=== PATIENT | male | born 1950 | race Caucasian/White ===

== ENCOUNTER 2024-04-13 08:47 | Outpatient (RCR) | payer MEDICARE, SELFPAY ==
--- NOTE | 2024-04-06 14:48 | CTCFLWUP_ITS ---
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 Higinio Quiñonez 01/14/2023. Stage IVb [id number] with extensive necrosis involving parotid gland extended subcutaneous 12/13 lymph n odes positive. Patient received concurrent chemotherapy ([place] Dr Mae) with radiation therapy, total dose 6000 cGy via VMAT completed 04/24/2023 Posttreatment PET 10/12/2023 revealed hypermetabolic right parotid mass smaller from prior exam but pe rsistent. Now a deep inferior right parotid lesion not seen previously but likely continue with the larger right parotid lesion. Tiny area of hypermetabolic soft tissue the right supra clav region pos terior to the right common carotid artery likely new lymph node met and focal hypermetabolic the left glossal tonsillar sulcus new from prior exam. Patient had biopsy of the recurrence 11/10/2023. Slightly above the prior treated field. Patient has been getting chemotherapy in [place]. Still another recurrence superior to the prior site on 03/29/2024. New PET scan performed not immediately available to me. As I see patient today there is gross tumor in the area superior to the prior field. I will attempt to speak with Dr. Velasco medical oncologist in [place] who is giving him every 3 weeks chemo about how this will be managed along with the radiation. Considering the area superior to the previously treated field I believe another 5 or 6000 cGy can be delivered at the site. Cc: Higinio Eduardo MD Electronically signed by: Jeremiah Jones M.D. 04/06/2024 2:46 PM
--- NOTE | 2024-04-06 14:50 | CTCTXPLN_ITS ---
[facility] [address] [place], [place] [address] Physician Clinical Treatment Planning Note Date of Service: 04/06/2024 Name: STEPHAN LEONARD D.O.B.: 1950 The patient has agreed to proceed with Radiation therapy. Tests and supporting medical records were interpreted to assist in defining the tumor location and extent of disease. Further imaging will be necessary to contour and delineate the volume to which the XRT will be provided. A. Treatment Intent: Curative B. Modality: 6 MV C. Requested Technique: VMAT D. Treatment Site: Right rastafarian E. Critical structures to be contoured on plan: F. In order to accomplish this plan, I am ordering/Prescribing the followin. Simulations (s) will be performed to accomplish a reproducible treatment position, to determine op timal treatment portals/beam arrangements, to design beam modifying devices and verify treatment port als on patient prior to the commencement of Radiation Therapy. Right rastafarian 2. Devices; for immobilization and beam shaping: Aquaplast 3. CT Guidance for placement of XRT chavez Scan area: 4. Portal images Frequency: 5. Invivo transit dose measurement once per week on all VMAT patients. 6. Special Physics Consult Requested for: 7. Other requests: Special procedures someone getting chemo and radiation G. Dose Objectives: Curative Electronically signed by: Jeremiah Jones M.D. 04/06/2024 2:47 PM
--- NOTE | 2024-04-06 14:52 | CTCTXPLNST_ITS ---
Radiation Oncology Treatment Planning Sheet Name: STEPHAN LEONARD MR#: [id number] : 1950 Dx: C07 Malignant neoplasm of parotid gland Date of Service: 04/06/2024 Account #: ?? Pt Treatment Intent: curative palliative other: Stage: Procedure CPT # Ordered Spec. Procedure 58932 1 Rojas Complex (set-up) 82465 Aquaplast /need to doyle sabianism site 1 Rojas Simple 08446 IMRT Plan 27807 1 MLC Devices VMAT 13029 3 Rojas 3 D 80307 TRTMT dev Complex 69244 Aqua Plast 1 TRTMT dev simple 27666 Basic Manuel 00007 6 Special Dosimetry 97962 Spec Physics 78260 Physics consult 1 Port Films 85760 SRS Cranial/1FX 31911 SBR 5 FX or Less /ex: 5 = 5 fx 24888 IMRT Simple 38082 IMRT Complex 36130 6000 30 IGRT 25771 25 Rad del com 6-10 92088 Rad del com 11 25388 Cont Med Physics 17028 6 Treatment Planning 23767 1 Rad del com 20 mev 25646 Rad del inter 6 98799 Rad del inter 02-01 32419 Rad del simple 6-10 79539 Rad del simple 02-01 07403 Special Port Plan 51207 TRTMT dev inter 50722 Isodose Complex 71378 Isodose simple 35286 Resp Motion Mgmt Simulation 19232 Placement of Fiducial Markers 05289 Electronically Signed By: Jeremiah Jones MD, DABR 04/06/2024 2:49 PM
== END 2024-04-15 23:59 | disposition home or self-care (01) ==
LOC: SCTC 08:47
PROVIDERS: PCP Family Medicine; Referring Provider Family Medicine; Visit Provider Radiology Therapeutic Radiology
DX: C07 Malignant neoplasm of parotid gland (principal); Z90.89 Acquired absence of other organs
CPT/HCPCS: 77014; 77290; 77334; 99213; G0463

== ENCOUNTER → 2024-04-29 | Outpatient (CLI) | payer MEDICARE, SELFPAY ==
[2024-04-29 10:41] LABS: Collection Type, Urine Clean Catch; Squamous Epithelial Cell,Urine 0 /hpf (0-5)
[2024-04-29 11:17] LABS: Bilirubin,Urine Negative (Negative); Blood,Urine Negative (Negative); Clarity,Urine Clear (Clear/Hazy); Color,Urine Lt-Yellow (Lt Yel-Yel); Glucose, Urine 1+ (Negative); Ketones,Urine Negative (Negative); Leukocyte Esterase,Urine Negative (Negative); Nitrite,Urine Negative (Negative); PH,Urine 5.5 (5.0-7.0); Protein,Urine Negative (Neg - Trace); RBC,Urine 2 /hpf (0-3); Specific Gravity,Urine 1.024 (1.001-1.035); Urobilinogen,Urine Negative mg/dL (0.0-1.0); WBC,Urine 1 /hpf (0-5)
[2024-04-29 11:32] LABS: Creatinine MALB Rnd Ur 110 mg/dL (30-125); Microalbumin Creat Ratio 13 mg/gCrea (<30); Microalbumin, Random Urine 14 mg/L (0-300)
[2024-04-29 11:32] LABS: Glucose Estimated Average 163 mg/dL (80-131); Hemoglobin A1C 7.3 % Hgb (4.8-6.0)
[2024-04-29 11:40] LABS: Alanine Aminotransferase 29 U/L (10-49); Albumin, Serum 4.4 gm/dL (3.4-4.8); Albumin/Globulin Ratio 2.3 (1.2-2.2); Alkaline Phosphatase 152 U/L (46-116); Anion Gap 8 (7-16); Aspartate Amino Transferase 23 U/L (0-34); BUN/Creatinine Ratio 17 Ratio (12-20); Bilirubin,Total 0.4 mg/dL (0.3-1.2); Blood Urea Nitrogen 20 mg/dL (9-23); Calcium 10.1 mg/dL (8.3-10.6); Calcium (Corrected) 10.1 mg/dL (8.5-10.1); Carbon Dioxide 25.1 mMol/L (20.0-31.0); Chloride 110 mMol/L (98-107); Cholesterol 154 mg/dL (132-200); Creatinine (Component) 1.2 mg/dL (0.6-1.3); Globulin 1.9 gm/dL (2.3-3.5); Glucose 190 mg/dL (74-106); HDL Cholesterol 31 mg/dL (40-60); LDL Cholesterol,Calculated 58 mg/dL (0-130); Osmolality,Calculated 292 (275-295); Potassium 4.5 mMol/L (3.4-5.1); Sodium 143 mMol/L (136-145); Thyroid Stimulating Hormone 0.76 uIU/mL (0.55-4.78); Total Protein 6.3 gm/dL (5.7-8.2); Triglycerides 324 mg/dL (30-150); Uric Acid 5.3 mg/dL (3.7-9.2); eGFR > 60 See Note
== END | disposition home or self-care (01) ==
LOC: COPL 09:55
PROVIDERS: PCP Family Medicine; Referring Provider Family Medicine; Visit Provider Family Medicine
DX: Z00.00 Encounter for general adult medical examination without abnormal findings (principal); E11.65 Type 2 diabetes mellitus with hyperglycemia; E78.2 Mixed hyperlipidemia; I10 Essential (primary) hypertension; E79.0 Hyperuricemia without signs of inflammatory arthritis and tophaceous disease
CPT/HCPCS: 36415; 80053; 80061; 81001; 82043; 82570; 83036; 84443; 84550

== ENCOUNTER 2024-05-13 08:31 | Outpatient (RCR) | payer MEDICARE, SELFPAY | END 2024-05-13 23:59 | disposition home or self-care (01) | LOC: SCTC 08:31 | PROVIDERS: PCP Family Medicine; Referring Provider Radiology Therapeutic Radiology; Visit Provider Radiology Therapeutic Radiology | DX: Z51.0 Encounter for antineoplastic radiation therapy (principal); C07 Malignant neoplasm of parotid gland; Z90.89 Acquired absence of other organs; Z92.21 Personal history of antineoplastic chemotherapy | CPT/HCPCS: 77300; 77301; 77336; 77338; 77385 ==

== ENCOUNTER 2024-06-06 08:23 | Outpatient (RCR) | payer MEDICARE, SELFPAY ==
--- NOTE | 2024-05-16 09:59 | CTCTRTNOTE_ITS ---
[facility] [address] [place], [place] [address] Weekly Management Date: 05/16/2024 ?? Name: STEPHAN Anderson.: 1950 A. Patient is currently at 3000 cGy. B. Patient is tolerating treatment well. Moderate erythema C. Resume radiation therapy. Electronically signed by: Jeremiah Jones M.D. 05/16/2024 9:57 AM
== END 2024-06-13 23:59 | disposition home or self-care (01) ==
LOC: SCTC 08:23
PROVIDERS: PCP Family Medicine; Referring Provider Family Medicine; Visit Provider Radiology Therapeutic Radiology
DX: Z51.0 Encounter for antineoplastic radiation therapy (principal); C07 Malignant neoplasm of parotid gland; L59.8 Other specified disorders of the skin and subcutaneous tissue related to radiation; Y84.2 Radiological procedure and radiotherapy as the cause of abnormal reaction of the patient, or of later complication, without mention of misadventure at the time of the procedure; H91.91 Unspecified hearing loss, right ear
CPT/HCPCS: 77336; 77385; 99424; 99425

== ENCOUNTER 2024-06-21 08:43 | Outpatient (RCR) | payer MEDICARE, SELFPAY ==
--- NOTE | 2024-06-21 09:58 | CTCTSUMM_ITS ---
[facility] [address] [place], [place] [address] Treatment Summary Date: 06/21/2024 MR#: [id number] Name: STEPHAN LEONARD : 1950 Dx: C07 Referring Physician: Higinio Quiñonez MD (A) Diagnosis: [ICD10] C07 Malignant neoplasm of parotid gland (B) Aim of Treatment: ?? (C) Concomitant Chemotherapy: Yes (D) Radiation Dates: Prior radiation therapy to the right parotid region 2023. For recurrence in the right cranial buddhism soft tissue l region was given additional treatment as follows. Treatment Prescription R buddhism VMAT 6 MV PHOT 6,000 cGy 30 200 cGy Approved (E) All chavez were treated using customized MLC Blocks (F) Finding at Discharge: Patient was seen for first follow-up on 06/21/2024 patient appears to have tolerated well with soft tissue thickening in the area treated with mild desquamation of skin. (G) Discharge Instructions and F/U Appt was given: The patient was also advised to continue follow-up with Dr. uQiñonez and primary care physician: Cc: MD Ulises Perez MD Electronically signed by: Jeremiah Jones MD, DAVIDA 06/21/2024 9:56 AM
== END 2024-07-13 23:59 | disposition home or self-care (01) ==
LOC: SCTC 08:43
PROVIDERS: PCP Family Medicine; Referring Provider Family Medicine; Visit Provider Radiology Therapeutic Radiology
DX: C07 Malignant neoplasm of parotid gland (principal); Z92.3 Personal history of irradiation
CPT/HCPCS: 99212; G0463

== ENCOUNTER → 2024-07-08 | Outpatient (CLI) | payer MEDICARE, MEDICAID, SELFPAY ==
[2024-07-08 08:43] LABS: Glucose Estimated Average 163 mg/dL (80-131); Hemoglobin A1C 7.3 % Hgb (4.8-6.0)
[2024-07-08 08:57] LABS: Alanine Aminotransferase 21 U/L (10-49); Albumin, Serum 4.4 gm/dL (3.4-4.8); Albumin/Globulin Ratio 2.2 (1.2-2.2); Alkaline Phosphatase 117 U/L (46-116); Anion Gap 6 (7-16); Aspartate Amino Transferase 23 U/L (0-34); BUN/Creatinine Ratio 15 Ratio (12-20); Bilirubin,Total 0.5 mg/dL (0.3-1.2); Blood Urea Nitrogen 20 mg/dL (9-23); Calcium 9.8 mg/dL (8.3-10.6); Calcium (Corrected) 9.8 mg/dL (8.5-10.1); Carbon Dioxide 25.2 mMol/L (20.0-31.0); Cardiac Risk Estimate 4.5 RATIO (4.0-6.7); Chloride 110 mMol/L (98-107); Cholesterol 158 mg/dL (132-200); Creatinine (Component) 1.3 mg/dL (0.6-1.3); Glucose 132 mg/dL (74-106); HDL Cholesterol 35 mg/dL (40-60); LDL Cholesterol,Calculated 63 mg/dL (0-130); Osmolality,Calculated 285 (275-295); Potassium 4.6 mMol/L (3.4-5.1); Sodium 141 mMol/L (136-145); Total Protein 6.4 gm/dL (5.7-8.2); Triglycerides 300 mg/dL (30-150); eGFR 59 See Note
== END | disposition home or self-care (01) ==
LOC: COPL 07:47
PROVIDERS: PCP Family Medicine; Referring Provider Family Medicine; Visit Provider Family Medicine
DX: E11.65 Type 2 diabetes mellitus with hyperglycemia (principal); E78.2 Mixed hyperlipidemia
CPT/HCPCS: 36415; 80053; 80061; 83036

== ENCOUNTER 2024-09-20 08:46 | Outpatient (RCR) | payer MEDICARE, MEDICAID, SELFPAY ==
--- NOTE | 2024-09-20 12:57 | CTCFLWUP_ITS ---
[facility] [address] [place], [place] [address] FOLLOW-UP NOTE Date: 09/20/2024 MR#: [id number] Name: STEPHAN LEONARD : 1950 Dx: C07 Malignant neoplasm of parotid gland Identification. Patient history of right parotid gland malignancy mucoepidermoid carcinoma status post right radical parotidectomy Dr. Per Quiñonez [place] January 14, 2023 Stage IVb [id number] with extensive necrosis involving parotid gland extending subcutaneous 9 of 30 lymph nodes positive. Patient received concurrent chemotherapy [place] (Dr Mae) with 6000 cGy VMAT completed 04/24/2023. Posttreatment PET revealed hypermetabolic right parotid mass smaller from prior exam but persistent. Recurrence superior to prior site noted 03/29/2024 confirmed by biopsy. The new site superior to the previous field was treated via VMAT 6000 cGy completed 06/06/2024. Patient taking hydrocodone 10 every 6 as needed for pain. Patient states that Dr. Velasco in [place] was treating his cancer with hormone blockers PET scan performed a month ago reportedly showed good response to prior treatment and no definite sign of active cancer. His exam and his right ear however there is dime sized preauricular area which appears firm, and irregular area in the anterior portion of the helix. Picture taken. Assessment. #1 History of stage IVb [id number] right parotid malignancy mucoepidermoid type surgery right radical parotidectomy neck dissection 01/14/2023. #2. Postop chemoradiation 6000 cGy completed 04/24/2023. #3. recurrence right episcopalian above prior treatment 6000 cGy completed 06/06/2024. #4. 6000 cGy right episcopalian area completed 06/06/2024. #5. Possible recurrence in the right preauricular and anterior helix area. #6. Took a picture of this and I will see him again in 1 month. Electronically signed by: Jeremiah Jones M.D. 09/20/2024 12:55 PM
== END 2024-10-13 23:59 | disposition home or self-care (01) ==
LOC: SCTC 08:46
PROVIDERS: PCP Family Medicine; Referring Provider Family Medicine; Visit Provider Radiology Therapeutic Radiology
DX: C07 Malignant neoplasm of parotid gland (principal); Z92.3 Personal history of irradiation
CPT/HCPCS: 99213; G0463

== ENCOUNTER 2024-10-20 07:50 | Outpatient (RCR) | payer MEDICARE, MEDICAID, SELFPAY ==
--- NOTE | 2024-10-20 08:31 | CTCFLWUP_ITS ---
[facility] [address] [place], [place] [address] FOLLOW-UP NOTE Date: 10/20/2024 MR#: [id number] Name: STEPHAN LEONARD : 1950 Dx: C07 Malignant neoplasm of parotid gland Identification. History of right parotid gland malignancy mucoepidermoid carcinoma status post right radical parotidectomy Dr. Per Quiñonez present on January 14, 2023 Stage IVb [id number] with extensive necrosis involving parotid gland extending subcutaneous 9 of 30 lymph nodes positive. Concurrent chemotherapy in [place] (Dr Mae) with 6000 cGy VMAT completed 04/24/2023. Posttreatment PET revealed hypermetabolic right parotid mass smaller from prior exam but persistent. Recurrence superior to prior site noted 01/17/2025 confirmed by biopsy. The new site superior to previous field was treated VMAT 6000 cGy completed 06/06/2024. PET scan performed posttreatment reportedly showed good response. When seen for checkup on 09/20/2021 there appeared to be a dime sized preauricular area along with. Irregular area in the antihelix. I saw patient today and compared with the picture taken a month ago. This appears to be larger and more tender so clinically recurring clearly. A#1. History of stage IVb pT3b N3b right parotid malignancy mucoepidermoid type right radical parotidectomy and neck dissection 01/14/2023 A#2 postop chemoradiation 6000 cGy completed 04/24/2023.. A#3. Recurrence right church above prior treatment 6000 cGy completed 06/06/2024. A#4. Likely recurrence in the right preauricular and anterior helix area patient is getting chemo again with Dr. Krista Montgomery. A#5. Renewed pain meds and will see him in 3 months. Patient with appointment with Dr. Quiñonez surgeon later this month.. Electronically signed by: Jeremiah Jones M.D. 10/20/2024 8:29 AM
== END 2024-11-13 23:59 | disposition home or self-care (01) ==
LOC: SCTC 07:50
PROVIDERS: PCP Family Medicine; Referring Provider Family Medicine; Visit Provider Radiology Therapeutic Radiology
DX: C07 Malignant neoplasm of parotid gland (principal); Z92.21 Personal history of antineoplastic chemotherapy; Z92.3 Personal history of irradiation
CPT/HCPCS: 99213; G0463

== ENCOUNTER → 2024-11-30 | Outpatient (CLI) | payer MEDICARE, MEDICAID, SELFPAY ==
[2024-11-30 08:30] LABS: Basophils # (Auto) 0.0 Thou/mm3 (0.0-0.2); Basophils % (Auto) 1 % (0-2.5); Eosinophils # (Auto) 0.1 Thou/mm3 (0.0-0.5); Eosinophils % (Auto) 1 % (0-10); Hematocrit 31.8 % (41.0-53.0); Hemoglobin 10.2 g/dL (13.5-16.0); Immature Granulocytes Auto 0.11 Thou/mm3 (0.00-0.00); Lymphocytes # (Auto) 0.8 Thou/mm3 (1.0-4.8); Lymphocytes % (Auto) 10 % (10-50); Mean Corpuscular HGB Conc 32.1 g/dl (31.0-37.0); Mean Corpuscular Hemoglobin 29.6 pg (25.0-35.0); Mean Corpuscular Volume 92 fL (80-100); Monocytes # (Auto) 0.7 Thou/mm3 (0.0-0.8); Monocytes % (Auto) 9 % (0-12); Neutrophils # (Auto) 6.2 Thou/mm3 (1.8-7.7); Neutrophils % (Auto) 78 % (37-80); Nucleated Red Blood Cell # 0.02 Thou/mm3 (0.00-0.00); Nucleated Red Blood Cell % 0 /100 WBC (0); Platelet Count 144 Thou/mm3 (140-440); RDW Standard Deviation 50.4 fL (35.1-43.9); Red Blood Count 3.45 Miln/mm3 (4.50-5.90); White Blood Count 7.9 Thou/mm3 (3.8-10.6)
[2024-11-30 08:35] LABS: Glucose Estimated Average 128 mg/dL (80-131); Hemoglobin A1C 6.1 % Hgb (4.8-6.0)
[2024-11-30 08:38] LABS: Alanine Aminotransferase 16 U/L (10-49); Albumin, Serum 4.4 gm/dL (3.4-4.8); Albumin/Globulin Ratio 2.6 (1.2-2.2); Alkaline Phosphatase 110 U/L (46-116); Anion Gap 7 (7-16); Aspartate Amino Transferase 22 U/L (0-34); BUN/Creatinine Ratio 11 Ratio (12-20); Bilirubin,Total 0.5 mg/dL (0.3-1.2); Blood Urea Nitrogen 14 mg/dL (9-23); Calcium 10.1 mg/dL (8.3-10.6); Calcium (Corrected) 10.1 mg/dL (8.5-10.1); Carbon Dioxide 27.6 mMol/L (20.0-31.0); Cardiac Risk Estimate 3.7 RATIO (4.0-6.7); Chloride 107 mMol/L (98-107); Cholesterol 123 mg/dL (132-200); Creatinine (Component) 1.3 mg/dL (0.6-1.3); Globulin 1.7 gm/dL (2.3-3.5); Glucose 122 mg/dL (74-106); HDL Cholesterol 33 mg/dL (40-60); LDL Cholesterol,Calculated 41 mg/dL (0-130); Osmolality,Calculated 284 (275-295); Potassium 4.3 mMol/L (3.4-5.1); Sodium 142 mMol/L (136-145); Total Protein 6.1 gm/dL (5.7-8.2); Triglycerides 244 mg/dL (30-150); Uric Acid 5.6 mg/dL (3.7-9.2); eGFR 58 See Note
== END | disposition home or self-care (01) ==
LOC: COPL 07:35
PROVIDERS: PCP Family Medicine; Referring Provider Family Medicine; Visit Provider Internal Medicine Hematology & Oncology
DX: D64.9 Anemia, unspecified (principal); E11.65 Type 2 diabetes mellitus with hyperglycemia; E78.2 Mixed hyperlipidemia; I10 Essential (primary) hypertension; E79.0 Hyperuricemia without signs of inflammatory arthritis and tophaceous disease
CPT/HCPCS: 36415; 80053; 80061; 83036; 84550; 85025

== ENCOUNTER 2025-01-18 08:20 | Outpatient (RCR) | payer MEDICARE, MEDICAID, SELFPAY ==
--- NOTE | 2025-01-18 09:30 | CTCFLWUP_ITS ---
[facility] [address] [place], [place] [address] FOLLOW-UP NOTE Date: 01/18/2025 MR#: [id number] Name: STEPHAN LEONARD : 1950 Dx: C07 Malignant neoplasm of parotid gland Identification. History of right parotid gland malignancy mucoepidermoid carcinoma status post right radical parotidectomy Dr. Per Quiñonez January 14, 2023. Stage IVb T3b pN3b with extensive necrosis involving parotid gland extending subcutaneous 12/13 lymph nodes positive. Concurrent chemo with Dr. Carmelita Tenorio 6000 cGy VMAT completed 04/24/2023. Recurrence paired to prior site noted 01/17/2025 confirmed by biopsy. New site superior to previous field was treated with VMAT 6000 cGy completed 06/06/2024. Still another recurrence right preauricular and anterior helix area resume chemo in [place]. Recently seen by [facility] and had 12-hour surgery about 3 weeks ago. Graft was taken from left thigh area. The area of observed previously healing well and patient has follow-up with [facility] in a few days. Yet to get records from [facility] which we have requested for. I have scheduled patient for 3-month follow-up but will be seeing him sooner if we need to get involved in any way. Patient is doing well in terms of pain management since the surgery but I will renew his pain meds as needed. Electronically signed by: Jeremiah Jones M.D. 01/18/2025 9:28 AM
== END 2025-02-12 23:59 | disposition home or self-care (01) ==
LOC: SCTC 08:20
PROVIDERS: PCP Family Medicine; Referring Provider Family Medicine; Visit Provider Radiology Therapeutic Radiology
DX: C07 Malignant neoplasm of parotid gland (principal); Z90.89 Acquired absence of other organs; Z92.3 Personal history of irradiation
CPT/HCPCS: 99213; G0463

== ENCOUNTER → 2025-01-23 | Outpatient (CLI) | payer MEDICARE, MEDICAID, SELFPAY ==
[2025-01-23 12:34] LABS: Alanine Aminotransferase 12 U/L (10-49); Albumin, Serum 4.3 gm/dL (3.4-4.8); Albumin/Globulin Ratio 2.7 (1.2-2.2); Alkaline Phosphatase 142 U/L (46-116); Anion Gap 7 (7-16); Aspartate Amino Transferase 16 U/L (0-34); BUN/Creatinine Ratio 13 Ratio (12-20); Bilirubin,Total 0.3 mg/dL (0.3-1.2); Blood Urea Nitrogen 14 mg/dL (9-23); Calcium 9.4 mg/dL (8.3-10.6); Calcium (Corrected) 9.4 mg/dL (8.5-10.1); Carbon Dioxide 25.8 mMol/L (20.0-31.0); Chloride 106 mMol/L (98-107); Creatinine (Component) 1.1 mg/dL (0.6-1.3); Globulin 1.6 gm/dL (2.3-3.5); Glucose 103 mg/dL (74-106); Magnesium 1.9 mg/dL (1.6-2.6); Osmolality,Calculated 278 (275-295); Potassium 4.4 mMol/L (3.4-5.1); Sodium 139 mMol/L (136-145); Total Protein 5.9 gm/dL (5.7-8.2); eGFR > 60 See Note
[2025-01-23 12:38] LABS: Basophils # (Auto) 0.0 Thou/mm3 (0.0-0.2); Basophils % (Auto) 0 % (0-2.5); Eosinophils # (Auto) 0.1 Thou/mm3 (0.0-0.5); Eosinophils % (Auto) 2 % (0-10); Hematocrit 25.4 % (41.0-53.0); Immature Granulocytes Auto 0.05 Thou/mm3 (0.00-0.00); Lymphocytes # (Auto) 0.8 Thou/mm3 (1.0-4.8); Lymphocytes % (Auto) 12 % (10-50); Mean Corpuscular HGB Conc 31.5 g/dl (31.0-37.0); Mean Corpuscular Hemoglobin 28.0 pg (25.0-35.0); Mean Corpuscular Volume 89 fL (80-100); Monocytes # (Auto) 0.7 Thou/mm3 (0.0-0.8); Monocytes % (Auto) 9 % (0-12); Neutrophils # (Auto) 5.3 Thou/mm3 (1.8-7.7); Neutrophils % (Auto) 76 % (37-80); Nucleated Red Blood Cell # 0.00 Thou/mm3 (0.00-0.00); Nucleated Red Blood Cell % 0 /100 WBC (0); Platelet Count 237 Thou/mm3 (140-440); RDW Standard Deviation 46.6 fL (35.1-43.9); Red Blood Count 2.86 Miln/mm3 (4.50-5.90); White Blood Count 7.0 Thou/mm3 (3.8-10.6)
[2025-01-23 12:40] LABS: Hemoglobin 8.0 g/dL (13.5-16.0)
== END | disposition home or self-care (01) ==
LOC: COPL 11:35
PROVIDERS: PCP Family Medicine; Referring Provider Family Medicine; Visit Provider Family Medicine
DX: E78.2 Mixed hyperlipidemia (principal); I12.9 Hypertensive chronic kidney disease with stage 1 through stage 4 chronic kidney disease, or unspecified chronic kidney disease; N18.31 Chronic kidney disease, stage 3a; I95.9 Hypotension, unspecified
CPT/HCPCS: 36415; 80053; 83735; 85025

== ENCOUNTER → 2025-01-27 | Outpatient (CLI) | payer MEDICARE, MEDICAID, SELFPAY | END | disposition home or self-care (01) | LOC: SLDO 14:10 | PROVIDERS: PCP Family Medicine; Referring Provider Family Medicine; Visit Provider Family Medicine | DX: L03.116 Cellulitis of left lower limb (principal) | CPT/HCPCS: 87070; 87075; 87077; 87186; 87205 ==

== ENCOUNTER → 2025-03-01 | Outpatient (CLI) | payer MEDICARE, MEDICAID, SELFPAY ==
[2025-03-01 09:46] LABS: Basophils # (Auto) 0.0 Thou/mm3 (0.0-0.2); Basophils % (Auto) 1 % (0-2.5); Eosinophils # (Auto) 0.3 Thou/mm3 (0.0-0.5); Eosinophils % (Auto) 4 % (0-10); Hematocrit 33.5 % (41.0-53.0); Hemoglobin 10.3 g/dL (13.5-16.0); Immature Granulocytes Auto 0.03 Thou/mm3 (0.00-0.00); Lymphocytes # (Auto) 0.8 Thou/mm3 (1.0-4.8); Lymphocytes % (Auto) 11 % (10-50); Mean Corpuscular HGB Conc 30.7 g/dl (31.0-37.0); Mean Corpuscular Hemoglobin 25.2 pg (25.0-35.0); Mean Corpuscular Volume 82 fL (80-100); Monocytes # (Auto) 0.6 Thou/mm3 (0.0-0.8); Monocytes % (Auto) 9 % (0-12); Neutrophils # (Auto) 5.6 Thou/mm3 (1.8-7.7); Neutrophils % (Auto) 75 % (37-80); Nucleated Red Blood Cell # 0.00 Thou/mm3 (0.00-0.00); Nucleated Red Blood Cell % 0 /100 WBC (0); Platelet Count 246 Thou/mm3 (140-440); RDW Standard Deviation 44.5 fL (35.1-43.9); Red Blood Count 4.09 Miln/mm3 (4.50-5.90); White Blood Count 7.4 Thou/mm3 (3.8-10.6)
[2025-03-01 10:10] LABS: Alanine Aminotransferase 10 U/L (10-49); Albumin, Serum 4.6 gm/dL (3.4-4.8); Albumin/Globulin Ratio 2.2 (1.2-2.2); Alkaline Phosphatase 133 U/L (46-116); Anion Gap 10 (7-16); Aspartate Amino Transferase 17 U/L (0-34); BUN/Creatinine Ratio 11 Ratio (12-20); Bilirubin,Total 0.4 mg/dL (0.3-1.2); Blood Urea Nitrogen 19 mg/dL (9-23); Calcium 9.6 mg/dL (8.3-10.6); Calcium (Corrected) 9.6 mg/dL (8.5-10.1); Carbon Dioxide 26.2 mMol/L (20.0-31.0); Chloride 105 mMol/L (98-107); Creatinine (Component) 1.7 mg/dL (0.6-1.3); Globulin 2.1 gm/dL (2.3-3.5); Glucose 124 mg/dL (74-106); Osmolality,Calculated 284 (275-295); Potassium 4.3 mMol/L (3.4-5.1); Sodium 141 mMol/L (136-145); Total Protein 6.7 gm/dL (5.7-8.2); eGFR 42 See Note
[2025-03-01 12:34] LABS: Sed Rate (ESR) 15 mm/hr (0-20)
== END | disposition home or self-care (01) ==
LOC: COPL 08:25
PROVIDERS: PCP Family Medicine; Referring Provider Family Medicine; Visit Provider Family Medicine
DX: A49.8 Other bacterial infections of unspecified site (principal)
CPT/HCPCS: 36415; 80053; 85025; 85652